=== PATIENT | female | born 1980 | race Caucasian/White ===

== ENCOUNTER 2017-01-11 17:31 | Emergency (ER) | payer MEDICAID ==
[2017-01-11 18:27] LABS: % BASOPHILS 0.8 % (0.0-2.0); % EOSINOPHILS 2.5 % (0.0-5.0); % LYMPHOCYTES 23.6 % (20.0-50.0); % MONOCYTES 5.4 % (2.0-10.0); % NEUTROPHILS 67.7 % (40.0-80.0); HEMATOCRIT 37.3 % (35.0-45.0); HEMOGLOBIN 12.1 gm/dL (11.7-15.5); MEAN CELL VOLUME 74.4 fl (81-100); MEAN CORPUSCULAR HEMOGLOBIN 24.1 pg (27.0-31.0); MEAN CORPUSCULAR HGB CONC 32.5 pg (28.0-36.0); MEAN PLATELET VOLUME 8.7 fl; NEUTROPHILE ABSOLUTE 8.2 Th/cmm (1.8-8.0); PLATELET COUNT 292 Th/cmm (150-400); RED BLOOD COUNT 5.01 Mil/cmm (3.80-5.10); RED CELL DISTRIBUTION WIDTH 16.4 % (11.5-20.0)
[2017-01-11 18:41] LABS: ALB/GLOB RATIO 1.1 (1.0-1.8); ALKALINE PHOSPHATASE 60 U/L (34-104); ANION GAP 8.7 (7.0-16.0); BILIRUBIN,TOTAL 0.2 mg/dL (0.3-1.0); BUN - UREA NITROGEN 18 mg/dL (7-25); BUN/CREATININE RATIO 22.5; CALCIUM SERUM 9.2 mg/dL (8.6-10.3); CARBON DIOXIDE 29.2 mEq/L (21.0-31.0); CHLORIDE 102 mEq/L (98-107); CREATININE - SERUM 0.8 mg/dL (0.6-1.2); GLUCOSE 93 mg/dL (70-105); POTASSIUM SERUM 3.9 mEq/L (3.5-5.1); SGOT 14 U/L (13-39); SGPT/ALT 16 U/L (7-52); SODIUM SERUM 136 mEq/L (136-145)
--- NOTE | 2017-01-11 18:41 | ED Physician Chart ---
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 SHE DENIES DIABETES, HYPERTENSION AND HEART DISEASE. SHE STATES THAT SHE HAS BEEN TREATED IN THE PAST FOR SUICIDAL ATTEMPTS. Allergies:: Allergies Allergy/AdvReac Type Severity Reaction Status Date / Time Penicillins [PCN] Allergy Verified 01/11/17 17:52 Vitals:: Vital Signs - 8 hr 01/11/17 17:31 Temp 98.5 F HR 91 RR 16 BP 126/88 O2 Sat % 97 Historian:: Patient Review:: Nurse's Note Reviewed Review of Systems - Review of Systems General/Constitutional: No fever, No chills, No weight loss, No weakness, No diaphoresis, No edema, No loss of appetite Skin: No skin lesions, No rash, No bruising Head: No headache, No light-headedness Eyes: No loss of vision, No pain, No diplopia ENT: No earache, No nasal drainage, No sore throat, No tinnitus Neck: No neck pain, No swelling, No thyromegaly, No stiffness, No mass noted Cardio Vascular: No chest pain, No palpitations, No PND, No orthopnea, No edema Pulmonary: No SOB, No cough, No sputum, No wheezing GI: No nausea, No vomiting, No diarrhea, No pain, No melena, No hematochezia, No constipation, No hematemesis G/U: No dysuria, No frequency, No hematuria Musculoskeletal: No bone or joint pain, No back pain, No muscle pain Endocrine: No polyuria, No polydipsia Psychiatric: Prior psych history, No depression, No anxiety, Suicidal ideation, No suicidal ideation Hematopoietic: No bruising, No lymphadenopathy Allergic/Immuno: No urticaria, No angioedema Neurological: No syncope, No focal symptoms, No weakness, No paresthesia, No headache, No seizure, No dizziness, No confusion, No vertigo Past Medical History - Past Medical History Obtainable: Yes Past Medical History: Other (PSYCHOSIS) Family History: None Social History: Non Smoker, No Alcohol, No Drug Use Surgical History: other (LEFT NECK LYMPHNODE REMOVED) Psychiatricy History: Depression Family Medical History - Family Member Mother History Unknown: Yes Physical Exam - Physical Examination General/Constitutional: Awake, Well-developed, well-nourished, Alert, No distress, GCS 15, Non-toxic appearing, Ambulatory Head: Atraumatic Eyes: Lids, conjuctiva normal, PERRL, EOMI Skin: Nl inspection, No rash, No skin lesions, No ecchymosis, Well hydrated, No lymphadenopathy ENMT: External ears, nose nl, Nasal exam nl, Lips, teeth, gums nl Neck: Nontender, Full ROM w/o pain, No JVD, No nuchal rigidity, No bruit, No mass, No stridor Respiratory: Nl effort/Exclusion, Clear to Auscultation, No Wheeze/Rhonchi/Rales Cardio Vascular: RRR, No murmur, gallop, rubs, NL S1 S2 GI: No tenderness/rebounding/guarding, No organomegaly, No hernia, Normal BS's, Nondistended, No mass/bruits, No McBurney tenderness : No CVA tenderness Extremities: No tenderness or effusion, Full ROM, normal strength in all extremities, No edema, Normal digits & nails Neuro/Psych: Alert/oriented, DTR's symmetric, Normal sensory exam, Normal motor strength, Judgement/insight normal, Mood normal (SUICIDAL IDEATION), Normal gait , No focal deficits Misc: normal gait, Normal back, No paraspinal tenderness Labs/Radiology/EKG Results - Lab Results Results: Abnormal Lab Results 01/11/17 01/11/17 01/11/17 18:18 18:18 18:18 WBC 12.0 H RBC 5.01 Hgb 12.1 Hct 37.3 MCV 74.4 L MCH 24.1 L MCHC Differential 32.5 RDW 16.4 Plt Count 292 MPV 8.7 Neutrophils % 67.7 Lymphocytes % 23.6 Monocytes % 5.4 Eosinophils % 2.5 Basophils % 0.8 Sodium 136 Potassium 3.9 Chloride 102 Carbon Dioxide 29.2 Anion Gap 8.7 BUN 18 Creatinine 0.8 Est GFR ( Amer) > 60.0 Est GFR (Non-Af Amer) > 60.0 BUN/Creatinine Ratio 22.5 Glucose 93 Whole Bld Lactic Acid Calcium 9.2 Total Bilirubin 0.2 L AST 14 ALT 16 Alkaline Phosphatase 60 Total Protein 7.4 Albumin 3.9 Globulin 3.5 Albumin/Globulin Ratio 1.1 Salicylates Acetaminophen Ethyl Alcohol RPR NONREACTIVE 01/11/17 01/11/17 01/11/17 18:18 18:18 18:18 WBC RBC Hgb Hct MCV MCH MCHC Differential RDW Plt Count MPV Neutrophils % Lymphocytes % Monocytes % Eosinophils % Basophils % Sodium Potassium Chloride Carbon Dioxide Anion Gap BUN Creatinine Est GFR ( Amer) Est GFR (Non-Af Amer) BUN/Creatinine Ratio Glucose Whole Bld Lactic Acid Calcium Total Bilirubin AST ALT Alkaline Phosphatase Total Protein Albumin Globulin Albumin/Globulin Ratio Salicylates < 25.0 L Acetaminophen < 10.0 L Ethyl Alcohol < 10 RPR 01/11/17 18:18 WBC RBC Hgb Hct MCV MCH MCHC Differential RDW Plt Count MPV Neutrophils % Lymphocytes % Monocytes % Eosinophils % Basophils % Sodium Potassium Chloride Carbon Dioxide Anion Gap BUN Creatinine Est GFR ( Amer) Est GFR (Non-Af Amer) BUN/Creatinine Ratio Glucose Whole Bld Lactic Acid 0.63 Calcium Total Bilirubin AST ALT Alkaline Phosphatase Total Protein Albumin Globulin Albumin/Globulin Ratio Salicylates Acetaminophen Ethyl Alcohol RPR ED Septic Shock - . Is Septic Shock (SBP<90, OR Lactate>4 mmol\L) present?: No - <6hrs of presentation: Vital Signs: Vital Signs - 8 hr 01/11/17 17:31 Temp 98.5 F HR 91 RR 16 BP 126/88 O2 Sat % 97 Reassessment (Disposition) - Reassessment Reassessment Condition:: Unchanged - Diagnosis Diagnosis:: SUICIDAL IDEATION - Patient Disposition Accepting Physician:: DR. ANDREWS WILL CARE FOR THE PATIENT STARTING AT 1900 HRS. Condition at Disposition:: Stable ED Discharge Plan - Patient Disposition Instructions: Psychosis
[2017-01-11 19:55] LABS: URINE BILIRUBIN NEGATIVE (NEGATIVE); URINE BLOOD NEGATIVE (NEGATIVE); URINE COLOR YELLOW; URINE GLUCOSE (UA) NEGATIVE (NEGATIVE); URINE KETONE NEGATIVE (NEGATIVE); URINE PROTEIN NEGATIVE (NEGATIVE); URINE UROBILINOGEN 0.2 E.U./dL (0.2 - 1.0)
[2017-01-11 19:56] LABS: URINE BACTERIA MODERATE /hpf (NONE SEEN); URINE EPITHELIAL CELLS MODERATE /lpf (FEW); URINE RBC 0-2 /hpf (0-5); URINE WBC 0-2 /hpf (0-5)
[2017-01-11 20:04] LABS: AMPHETAMINE URINE NEGATIVE (NEGATIVE); BARBITURATES URINE NEGATIVE (NEGATIVE); METHADONE URINE NEGATIVE (NEGATIVE)
--- NOTE | 2017-01-12 21:52 | Admit Criteria Form ---
Admit Criteria Forms - Admit Criteria Diagnosis: PSYCHIATRIC DISORDERS Clinical Indications for Inpatient Care (Place 'X' for any and all applicable criteria): Ongoing inpatient care may be needed for ANY ONE of the following(1)(2)(3)(4)(6) (7)(8): [X]I. Danger to self or others not manageable at lower level of care. [ ]II. Grave disability (eg, inability to perform self care necessary at lower level of care) [ ]III. Agitation or inappropriate behavior interfering with care for primary condition (eg, attempting to discontinue lines or drains prematurely, unable to cooperate with respiratory care) [ ]IV. Severe disability or disorder indicated by ALL of the following: [ ]a) Severe behavioral health disorder-related symptoms or condition indicated by ANY ONE of the following: [ ]i) Severe problem with cognition, memory, judgment, or impulse control [ ]ii) Severe clinical manifestations (eg, hallucinations, delusions, other acute psychotic symptoms, rita, extreme agitation or anxiety) [ ]b) Patient management at lower level of care is not feasible until acute intervention or modification is initiated. Extended stay beyond goal length of stay for the primary condition may be indicated when ANY ONE of the following is present: (1)(2)(3)(4): [ ]a) Patient is a danger to self or others and not manageable at lower level of care. [ ]b) Behavior crisis management, including physical or chemical restraints, is required and is not available at a lower level of care. [ ]c) Behavioral symptoms (e.g., agitation, somnolence, inappropriate behavior) are present, and are not manageable at a lower level of care. [ ]d) Patient cannot understand follow-up treatment and crisis plan. [ ]e) Provider and supports are not sufficiently available at lower level of care. [ ]f) Patient cannot participate (e.g., verify absence of plan for harm) and is in needed of monitoring. The original [facility] [employer] By Search content created by [facility] [employer] has been revised. The portions of the content which have been revised are identified through the use of italic text or in bold, and [facility] [employer] has neither reviewed nor approved the modified material. All other unmodified content is copyright [facility] [employer]. Please see references footnoted in the original [facility] edition 2016 Admit Criteria Met?: Yes
--- NOTE | 2017-01-13 15:33 | General Progress Note ---
Subjective - Review of Systems Service Date: 01/13/17 Events since last encounter: had brief encounter w this pt at 930am today. 01/13/17 pt has been held in ed x 2 days awaiting placement on psych hold. pt felt depressed about not having a job despite has a degree. 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 needs a typing certificate but it costs 125$ and she doesnt have the $$. she recently quit job at [employer]. felt depressed and has had suicideideation w thought of throwing herself under train. has had past SA w ingestions. no family/friends seen here today. pt feels a bit better now but still admits to some SI. placement has been confirmed at a facility and pt is planning to leave imminently. PE is stable, mod overweight, no sob. no pains. no respiratory difficulty, ambulates wo any diffciculty. DX: suicide ideation Plan- remains same..ed hold until transfer for psych facility. cond- stable physically/guarded from mental perspective Objective - Results Result Diagrams: 01/11/17 18:18 01/11/17 18:18 Recent Labs: Laboratory Last Values WBC 12.0 Th/cmm (4.8-10.8) H 01/11/17 18:18 RBC 5.01 Mil/cmm (3.80-5.10) 01/11/17 18:18 Hgb 12.1 gm/dL (11.7-15.5) 01/11/17 18:18 Hct 37.3 % (35.0-45.0) 01/11/17 18:18 MCV 74.4 fl (81-100) L 01/11/17 18:18 MCH 24.1 pg (27.0-31.0) L 01/11/17 18:18 MCHC Differential 32.5 pg (28.0-36.0) 01/11/17 18:18 RDW 16.4 % (11.5-20.0) 01/11/17 18:18 Plt Count 292 Th/cmm (150-400) 01/11/17 18:18 MPV 8.7 fl 01/11/17 18:18 Neutrophils % 67.7 % (40.0-80.0) 01/11/17 18:18 Lymphocytes % 23.6 % (20.0-50.0) 01/11/17 18:18 Monocytes % 5.4 % (2.0-10.0) 01/11/17 18:18 Eosinophils % 2.5 % (0.0-5.0) 01/11/17 18:18 Basophils % 0.8 % (0.0-2.0) 01/11/17 18:18 Sodium 136 mEq/L (136-145) 01/11/17 18:18 Potassium 3.9 mEq/L (3.5-5.1) 01/11/17 18:18 Chloride 102 mEq/L (98-107) 01/11/17 18:18 Carbon Dioxide 29.2 mEq/L (21.0-31.0) 01/11/17 18:18 Anion Gap 8.7 (7.0-16.0) 01/11/17 18:18 BUN 18 mg/dL (7-25) 01/11/17 18:18 Creatinine 0.8 mg/dL (0.6-1.2) 01/11/17 18:18 Est GFR ( Amer) > 60.0 ml/min (>90) 01/11/17 18:18 Est GFR (Non-Af Amer) > 60.0 ml/min 01/11/17 18:18 BUN/Creatinine Ratio 22.5 01/11/17 18:18 Glucose 93 mg/dL (70-105) 01/11/17 18:18 Whole Bld Lactic Acid 0.63 mmol/L (0.60-1.99) 01/11/17 18:18 Calcium 9.2 mg/dL (8.6-10.3) 01/11/17 18:18 Total Bilirubin 0.2 mg/dL (0.3-1.0) L 01/11/17 18:18 AST 14 U/L (13-39) 01/11/17 18:18 ALT 16 U/L (7-52) 01/11/17 18:18 Alkaline Phosphatase 60 U/L (34-104) 01/11/17 18:18 Total Protein 7.4 gm/dL (6.0-8.3) 01/11/17 18:18 Albumin 3.9 gm/dL (3.7-5.3) 01/11/17 18:18 Globulin 3.5 gm/dL 01/11/17 18:18 Albumin/Globulin Ratio 1.1 (1.0-1.8) 01/11/17 18:18 Urine Source CLEAN C 01/11/17 17:30 Urine Color YELLOW 01/11/17 17:30 Urine Clarity SLIGHT HAZY (CLEAR) 01/11/17 17:30 Urine pH 6.0 01/11/17 17:30 Ur Specific Russell 1.025 (1.005-1.030) 01/11/17 17:30 Urine Protein NEGATIVE mg/dL (NEGATIVE) 01/11/17 17:30 Urine Glucose (UA) NEGATIVE mg/dL (NEGATIVE) 01/11/17 17:30 Urine Ketones NEGATIVE mg/dL (NEGATIVE) 01/11/17 17:30 Urine Blood NEGATIVE (NEGATIVE) 01/11/17 17:30 Urine Nitrate NEGATIVE (NEGATIVE) 01/11/17 17:30 Urine Bilirubin NEGATIVE (NEGATIVE) 01/11/17 17:30 Urine Urobilinogen 0.2 E.U./dL (0.2 - 1.0) 01/11/17 17:30 Ur Leukocyte Esterase NEGATIVE (NEGATIVE) 01/11/17 17:30 Urine RBC 0-2 /hpf (0-5) 01/11/17 17:30 Urine WBC 0-2 /hpf (0-5) 01/11/17 17:30 Ur Epithelial Cells MODERATE /lpf (FEW) 01/11/17 17:30 Urine Bacteria MODERATE /hpf (NONE SEEN) 01/11/17 17:30 Urine Mucus FEW /lpf (FEW) 01/11/17 17:30 Urine Test NEGATIVE 01/11/17 19:30 Salicylates < 25.0 mg/L (30.0-100.0) L 01/11/17 18:18 Urine Opiates Screen NEGATIVE (NEGATIVE) 01/11/17 17:30 Urine Methadone Screen NEGATIVE (NEGATIVE) 01/11/17 17:30 Acetaminophen < 10.0 ug/mL (10.0-30.0) L 01/11/17 18:18 Ur Barbiturates Screen NEGATIVE (NEGATIVE) 01/11/17 17:30 Ur Tricyclics Screen NEGATIVE (NEGATIVE) 01/11/17 17:30 Ur Phencyclidine Scrn NEGATIVE (NEGATIVE) 01/11/17 17:30 Amphetamines Screen NEGATIVE (NEGATIVE) 01/11/17 17:30 U Methamphetamines Scrn NEGATIVE (NEGATIVE) 01/11/17 17:30 U Benzodiazepines Scrn NEGATIVE (NEGATIVE) 01/11/17 17:30 U Cocaine Metab Screen NEGATIVE (NEGATIVE) 01/11/17 17:30 U Cannabinoids Screen NEGATIVE (NEGATIVE) 01/11/17 17:30 Ethyl Alcohol < 10 mg/dL (0-10) 01/11/17 18:18 RPR NONREACTIVE (NONREACTIVE) 01/11/17 18:18 - Physical Exam Vitals and I&O: Vital Signs Temp 97.8 F 01/13/17 14:42 Pulse 78 01/13/17 14:42 Resp 16 01/13/17 14:42 BP 118/71 01/13/17 14:42 Pulse Ox 99 01/13/17 14:42 Active Medications: Current Medications Lorazepam (Ativan) 1 mg PO Q6HR PRN; Protocol PRN Reason: Insomnia Stop: 03/14/17 09:29
--- NOTE | 2017-01-14 04:11 | Psychosocial Evaluation ---
DATE OF SERVICE: 01/13/2017 HISTORY OF PRESENT ILLNESS: This 36-year-old female currently on a 5150 hold, suicidal with intent and plan to get hit by traffic or a train. States she is severely depressed, cannot find work, cannot find a job, hopeless, despairing, attest to poor finances, feels that she cannot make it in life, positive anhedonia and tearful on exam. PAST PSYCHIATRIC HISTORY: Overdose in 2007, and a suicide efforts. FAMILY HISTORY: Mom with depression. SOCIAL HISTORY: Born in [place], not . She does have a child, but she adopted a child out. She is living with her roommates. No drugs, no alcohol and no tobacco. She has a bachelor's degree, but is unable to find work. MEDICAL HISTORY: She has been medically cleared. MEDICATIONS: Include Abilify and Celexa. MENTAL STATUS EXAMINATION: Stated age. Fair eye contact. Speech within normal limits. Mood "terrible." Affect depressed, linear on exam. attest SI with intent and plan [place]. No HI. No psychotic symptoms. Poor insight, poor judgment and poor impulse control. PROVISIONAL DIAGNOSES: Major depression, recurrent, severe. No evidence of psychosis and anxiety, unspecified. Also poor medication and treatment compliant. She stopped her Celexa. Under medical, she is medically cleared. RECOMMENDATIONS AND PLAN: The patient remains suicidal. She is not boubacar for safety. She continues to attest SI with intent. PLAN: Continue 5150 hold, reevaluate tomorrow if the patient continues to attest SI, she may need ____ hold, transferred to inpatient psych [facility]. JOB# [id number]
== END 2017-01-13 16:50 | disposition short-term general hospital (02) ==
LOC: ER 17:31
DX: R45.851 Suicidal ideations (principal); Z88.0 Allergy status to penicillin
CPT/HCPCS: 36415-UA; 80053-TC; 80307; 80320-TC; 80329-TC; 81001-TC; 81025-TC; 83605; 85025-TC; 86592-TC; Z7502; Z7610